=== PATIENT | male | born 1985 | race Two or more races ===

== ENCOUNTER 2018-11-27 04:13 | Emergency (ER) | payer BC ==
--- NOTE | 2018-11-27 04:38 | EDM.PDOC ---
ED HPI GENERAL MEDICAL PROBLEM - General Chief Complaint: Respiratory Problem Stated Complaint: SIDE PAIN Time Seen by Provider: 11/27/18 04:24 Source of Information: Reports: Patient History Limitations: Reports: No Limitations - History of Present Illness INITIAL COMMENTS - FREE TEXT/NARRATIVE: This is a 33-year-old male. He awoke this morning to go to work and started having a coughing fit from smoking and was coughing real hard and developed some pain in his left lower rib area towards the back. He was somewhat uncomfortable but as he was driving to work he sneezed real hard and had sudden severe pain that seemed to radiate around to the front of his left lower chest. He says he feels like his whole body turned hot and now she coughs or sneezes or twists he has increased pain in his left lower ribs posteriorly. No difficulty in urination no blood in his urine. He denies any recent illnesses no fever or chills. Left Lower Chest Pain Score (Numeric/FACES): 5 - Related Data Allergies Allergy/AdvReac Type Severity Reaction Status Date / Time No Known Allergies Allergy Verified 11/27/18 04:22 Home Meds: Home Meds Cyclobenzaprine [Flexeril] 10 mg PO TID PRN #20 tab 11/27/18 [Rx] Hydrocodone/Acetaminophen [Hydrocodon-Acetaminophen 5-325] 1 each PO Q6H PRN # 15 tablet 11/27/18 [Rx] Lisinopril 30 mg PO DAILY 11/27/18 [History] metFORMIN [Glucophage] 500 mg PO BIDMEALS 11/27/18 [History] Past Medical History Cardiovascular History: Reports: Hypertension Endocrine/Metabolic History: Reports: Diabetes, Type II - Past Surgical History Musculoskeletal Surgical History: Reports: Other (See Below) Other Musculoskeletal Surgeries/Procedures:: knee surgery to shave down cartilege Social & Family History - Tobacco Use Smoking Status *Q: Current Some Day Smoker Years of Tobacco use: 10 Packs/Tins Daily: 0.2 - Recreational Drug Use Recreational Drug Use: No ED ROS GENERAL - Review of Systems Review Of Systems: See Below Constitutional: Denies: Fever, Chills HEENT: Reports: No Symptoms Respiratory: Reports: Shortness of Breath, Pleuritic Chest Pain, Cough Cardiovascular: Denies: Chest Pain Endocrine: Reports: No Symptoms GI/Abdominal: Denies: Abdominal Pain, Diarrhea, Nausea, Vomiting : Reports: No Symptoms Musculoskeletal: Reports: Other (Left rib pain) Skin: Reports: No Symptoms Neurological: Reports: No Symptoms Psychiatric: Reports: No Symptoms Hematologic/Lymphatic: Reports: No Symptoms ED EXAM, GENERAL - Physical Exam Exam: See Below Exam Limited By: No Limitations General Appearance: Alert, WD/WN, No Apparent Distress Eye Exam: Bilateral Eye: Normal Inspection Ears: Normal External Exam Nose: Normal Inspection Throat/Mouth: Normal Inspection, Normal Voice, No Airway Compromise Head: Normocephalic Neck: Supple Respiratory/Chest: No Respiratory Distress, Lungs Clear, Normal Breath Sounds, Other (Some mild splinting on the left side when he breathes deep, his left lower ribs posteriorly laterally are tender on palpation but no crepitus is noted) Cardiovascular: Regular Rate, Rhythm, No Murmur GI/Abdominal: Soft, Other (Elevated BMI) Back Exam: Other (He is very tender in the costochondral margin along the back and lateral edge of the ribs, the muscles are tender as well as palpation along the lower ribs is also tender) Extremities: Normal Inspection, Normal Range of Motion Neurological: Alert, Oriented Psychiatric: Normal Affect, Normal Mood Skin Exam: Warm, Dry Course - Vital Signs Last Recorded V/S: Last Vital Signs Temp 98.1 F 11/27/18 04:19 Pulse 85 11/27/18 04:19 Resp 20 11/27/18 04:19 BP 185/115 H 11/27/18 04:19 Pulse Ox 98 11/27/18 04:19 - Orders/Labs/Meds Orders: Active Orders 24 hr Category Date Time Status Ribs 2V w Chest Lt [CR] Stat Exams 11/27/18 04:32 Taken - Radiology Interpretation Free Text/Narrative:: X-rays do not suggest any acute fractures of the ribs. Lung meneses do not suggest any acute changes or pneumothorax. - Re-Assessments/Exams Free Text/Narrative Re-Assessment/Exam: 11/27/18 05:12 I spoke to the patient regarding the x-ray results. I believe he has pulled some muscles in his ribs and sprained his ribs and is having muscle spasms. I cautioned him that I will give him something for pain and spasms and that he needs to be out of work and ice his ribs down for the next 48 hours then start using heat, also suggested getting a cough syrup [id number] like Robitussin. I will give him a note for work for the next several days. Departure - Departure Time of Disposition: 05:13 Disposition: Home, Self-Care 01 Condition: Fair Clinical Impression: Rib pain on left side, Strain of muscle at thorax level, Muscle spasm - Discharge Information *PRESCRIPTION DRUG MONITORING PROGRAM REVIEWED*: No *COPY OF PRESCRIPTION DRUG MONITORING REPORT IN PATIENT BIANCA: No Prescriptions: Cyclobenzaprine [Flexeril] 10 mg PO TID PRN #20 tab PRN Reason: Spasms Hydrocodone/Acetaminophen [Hydrocodon-Acetaminophen 5-325] 1 each PO Q6H PRN # 15 tablet PRN Reason: Pain Instructions: Muscle Cramps and Spasms, [id number], Muscle Strain Referrals: Dino Chakraborty PA [Primary Care Provider] - Forms: ED Department Discharge, ED Return to Work/School Form Additional Instructions: Go home, put ice to your ribs and back were you have the soreness, when the pharmacy opens get the medications for pain and spasms and also get a cough syrup like Robitussin, gentle activity, cut back on your smoking as much as possible, use ice to your ribs on and off for the next 48 hours then you may start using heat, no strenuous activity because it will cause spasms, follow-up with your family doctor later this week for recheck, return to the ER if needed - My Orders Last 24 Hours: My Active Orders 11/27/18 04:32 Ribs 2V w Chest Lt [CR] Stat - Assessment/Plan Last 24 Hours: My Active Orders 11/27/18 04:32 Ribs 2V w Chest Lt [CR] Stat
--- NOTE | 2018-11-28 08:26 | CR ---
Chest and left ribs: Frontal view of the chest was obtained as well as three views of the left ribs. Comparison: No prior chest or rib exam. Heart size and mediastinum are normal. Lungs are clear. No discrete fracture or other abnormality is seen. Impression: 1. No acute intrathoracic process is seen. No discrete left-sided rib abnormality is appreciated. Diagnostic code #1
== END 2018-11-27 05:24 | disposition home or self-care (01) ==
LOC: JD.ED 04:13
DX: S29.011A Strain of muscle and tendon of front wall of thorax, initial encounter (principal); I10 Essential (primary) hypertension; R07.81 Pleurodynia; E11.9 Type 2 diabetes mellitus without complications; F17.210 Nicotine dependence, cigarettes, uncomplicated; X58.XXXA Exposure to other specified factors, initial encounter
CPT/HCPCS: 71101-26-LT; 71101-LT; 99283; 99284-25